=== PATIENT | male | born 1945 | race Caucasian/White ===

== ENCOUNTER 2016-10-28 10:02 | Outpatient (CLI) | payer MEDICARE ==
[2016-10-28 12:45] LABS: Hemoglobin A1c 8.1 % (4.0-6.0)
== END 2016-10-28 10:03 | disposition home or self-care (01) ==
LOC: NAVSJIPCSP 10:02
PROVIDERS: ATTEND Internal Medicine
DX: E78.5 Hyperlipidemia, unspecified (principal); E11.51 Type 2 diabetes mellitus with diabetic peripheral angiopathy without gangrene
CPT/HCPCS: 36415; 80061; 83036

== ENCOUNTER 2017-02-04 09:25 | Outpatient (CLI) | payer MEDICARE ==
[2017-02-04 12:36] LABS: Hemoglobin A1c 7.9 % (4.0-6.0)
[2017-02-04 12:47] LABS: Cardiac Risk 3.8 (Less than 4.5)
[2017-02-04 14:14] LABS: PSA-Asymptomatic (SCREENING) 4.45 ng/mL (0-4.0)
[2017-02-05 18:18] LABS: Hep C IgG Ab Non-Reactive (NonReactive); Hep C Index 0.18 S/CO (0-0.79)
== END 2017-02-04 09:26 | disposition home or self-care (01) ==
LOC: NAVSJIPCSP 09:25
PROVIDERS: ATTEND Internal Medicine
DX: Z12.5 Encounter for screening for malignant neoplasm of prostate (principal); E11.51 Type 2 diabetes mellitus with diabetic peripheral angiopathy without gangrene; E78.5 Hyperlipidemia, unspecified; Z79.899 Other long term (current) drug therapy; Z72.89 Other problems related to lifestyle
CPT/HCPCS: 36415; 80061; 83036; 86803; G0103

== ENCOUNTER 2017-03-05 10:31 | Outpatient (CLI) | payer MEDICARE ==
[2017-03-05 12:47] LABS: Blood, Urine Large (Negative); Clarity Cloudy (Clear); Glucose, Urine (Dipstick) 250 mg/dL (Negative); Leukocyte Negative (Negative); Protein, Urine (Dipstick) > or equal to 300 mg/dL (Neg-Trace); Specific Gravity, Urine 1.025 (1.005-1.030); pH, Urine 5.5 (5.0-9.0)
[2017-03-05 12:49] LABS: Bilirubin Negative (Negative); Icto Negative (Negative); Nitrite Negative (Negative)
[2017-03-05 13:28] LABS: Bacteria/HPF Rare-Few HPF (None Seen); RBC/HPF GREATER THAN 50-TNTC HPF (0-3); Squamous Epithelial 0-3 HPF (0-3)
== END 2017-03-05 10:32 | disposition home or self-care (01) ==
LOC: NAVSJIPCSP 10:31
PROVIDERS: ATTEND Internal Medicine
DX: R31.9 Hematuria, unspecified (principal)
CPT/HCPCS: 81003; 81015; 87086

== ENCOUNTER 2017-03-30 09:42 | Outpatient (CLI) | payer MEDICARE ==
[2017-03-30 13:33] LABS: Bilirubin Negative (Negative); Blood, Urine Negative (Negative); Clarity Clear (Clear); Glucose, Urine (Dipstick) >=1000 mg/dL (Negative); Leukocyte Negative (Negative); Nitrite Negative (Negative); Protein, Urine (Dipstick) Negative (Neg-Trace); Specific Gravity, Urine 1.025 (1.005-1.030); Urobilinogen 0.2 mg/dL (0.2-1.0)
[2017-03-30 13:59] LABS: RBC/HPF None Seen HPF (0-3); Squamous Epithelial 0-3 HPF (0-3); WBC/HPF 0-3 HPF (0-3)
[2017-03-30 14:00] LABS: Bacteria/HPF None Seen HPF (None Seen)
== END 2017-03-30 09:43 ==
LOC: NAVSJIPCSP 09:42
PROVIDERS: ATTEND Urology
DX: R31.0 Gross hematuria (principal)
CPT/HCPCS: 36415; 81001; 87086

== ENCOUNTER 2019-10-24 16:12 | Outpatient (CLI) | payer MEDICARE ==
--- NOTE | 2019-10-24 16:28 | RAD ---
Right shoulder 3 views HISTORY: Right shoulder pain. FINDINGS: Acromioclavicular and glenohumeral alignment are maintained. Mild osteophytosis. Downslopin g of the acromion. No acute fracture, dislocation, or aggressive osseous erosions. IMPRESSION: Mild osteoarthritic changes right shoulder.
== END 2019-10-24 16:13 | disposition home or self-care (01) ==
LOC: NAV RAD 16:12
PROVIDERS: ATTEND Internal Medicine
DX: S40.011A Contusion of right shoulder, initial encounter (principal); M19.011 Primary osteoarthritis, right shoulder

== ENCOUNTER 2020-02-01 12:51 | Emergency (ER) | payer MEDICARE ==
--- NOTE | 2020-02-01 14:14 | RAD ---
Exam:4 views right knee HISTORY: Pain. COMPARISON: None FINDINGS: Moderate atherosclerosis. No fracture, cortical irregularity or periosteal reaction. Preser joann joint spaces. No joint effusion. IMPRESSION: No acute abnormality.
== END 2020-02-01 14:40 | disposition home or self-care (01) ==
LOC: NAV ERS 12:51
DX: S83.401A Sprain of unspecified collateral ligament of right knee, initial encounter (principal); I11.0 Hypertensive heart disease with heart failure; I50.9 Heart failure, unspecified; E78.5 Hyperlipidemia, unspecified; E78.00 Pure hypercholesterolemia, unspecified; Z79.82 Long term (current) use of aspirin; Z79.899 Other long term (current) drug therapy; W22.8XXA Striking against or struck by other objects, initial encounter

== ENCOUNTER 2020-04-05 15:37 | Inpatient (IN) | payer MEDICARE, OTHER ==
[2020-04-05 16:24] VITALS: BMI 26.9
[2020-04-05] MEDS ORDERED: Nitroglycerin 0.4 MG TAB (25 Tab Bottle) SL PRN (17:03)
[2020-04-05] MEDS ORDERED: Dextrose 50% Abboject 50 ML SYRINGE SLOW IVP PRN (17:07)
[2020-04-05] MEDS ORDERED: METHYLPREDNISOLONE 4 MG PO SCH (17:15)
--- NOTE | 2020-04-05 18:04 | HP ---
CHIEF COMPLAINT: Pneumonia and deconditioning for therapy. BRIEF HISTORY: This is a very pleasant 75-year-old male, who is well known to me, was exposed to COVID as his tested positive. He presented to the hospital with a 1-week history of cough and fever of 101.6. He had two tests on March 22 and on March 26, which were negative. He was admitted to the hospital and diagnosed with community-acquired pneumonia. He was treated with IV antibiotics and steroids. He responded well to the above treatment. He apparently was taken off his oxygen this morning, but currently he is on 1 L. He is weak. He denies any PND or orthopnea. He denies any fever or chills. His cough has pretty much resolved. PAST MEDICAL HISTORY: 1. Coronary artery disease. 2. Aortic stenosis, status post valve replacement. 3. Diabetes mellitus type 2. 4. Hypertension. 5. Dyslipidemia. 6. BPH. 7. Restless legs syndrome. 8. Peripheral neuropathy. PAST SURGICAL HISTORY: 1. Coronary artery bypass grafting. 2. Stent placement. 3. Cholecystectomy. MEDICATIONS: He has been transferred here on the following medications; 1. Tylenol 650 p.o. q.4 p.r.n. 2. Vitamin C 1000 mg daily. 3. Plavix 75 mg daily. 4. Finasteride 5 mg daily. 5. Lasix 20 mg daily. 6. Gabapentin 600 mg in the morning and noon, and 1200 mg at bedtime. 7. Amaryl 2 mg b.i.d. 8. Levaquin 750 mg daily. 9. Methylprednisolone Dosepak 4 mg. 10. Sublingual nitroglycerin q.5 minutes p.r.n. chest pain. 11. Pramipexole 0.25 mg b.i.d. 12. Rosuvastatin 10 mg daily. 13. Entresto , one tablet daily. 14. Zinc 220 mg daily. ALLERGIES: NO KNOWN DRUG ALLERGIES. FAMILY HISTORY: Noncontributory to current admission. PSYCHOSOCIAL HISTORY: Former smoker. Denies any recreational or IV drug abuse. Active and independent. REVIEW OF SYSTEMS: CARDIOVASCULAR: Denies any chest pain. Improving shortness of breath. Denies any PND or orthopnea. Denies any palpitations. RESPIRATORY: Improving cough. Denies any expectoration. Denies any pleuritic-type chest pain. Denies any hemoptysis. GASTROINTESTINAL: Denies any nausea, vomiting, diarrhea, constipation, hematemesis, melena, or hematochezia. GENITOURINARY: Denies any frequency, urgency, dysuria, or hematuria. CENTRAL NERVOUS SYSTEM: Denies any focal numbness, weakness, or fainting spells. He does have chronic peripheral neuropathy. EXTREMITIES: Occasional arthralgia. SKIN: Denies any rash. HEENT: Denies any difficulty with speech, vision, or swallowing. PSYCHIATRIC: Denies any issues with depression or anxiety. PHYSICAL EXAMINATION: GENERAL: A pleasant 75-year-old male, resting comfortably in bed and denies any concerns. VITAL SIGNS: He is afebrile. Heart rate 73, respirations 18, oxygen saturation 94% on room air, blood pressure 116/57. HEENT: Normocephalic and atraumatic. Pupils are equally reacting to light and accommodation. Extraocular muscles are intact. NECK: No JVD, thyromegaly, cervical lymphadenopathy, or throat exudates. No carotid bruits. CARDIOVASCULAR: S1 and S2 plus. Rate and rhythm regular. RESPIRATORY: Normal vesicular breath sounds heard in all lung zavala. ABDOMEN: Soft, nontender. Bowel sounds heard in all quadrants. EXTREMITIES: Without cyanosis or clubbing. CENTRAL NERVOUS SYSTEM: Generalized weakness. IMPRESSION: 1. Resolving pneumonitis, likely community-acquired. 2. Coronary artery disease. 3. Diabetes mellitus type 2. 4. Hypertension. 5. Dyslipidemia. 6. BPH. 7. Restless legs syndrome. 8. Peripheral neuropathy. PLAN: 1. Continue current medications. 2. 1800 calorie heart healthy ADA diet. 3. Accu-Cheks with sliding scale coverage. 4. DVT prophylaxis with PlexiPulses. 5. Decubitus precautions. 6. Stress ulcer prophylaxis. 7. PT/OT eval and treat. 8. Recheck CBC, BMP in the morning. 9. Monitor respiratory status and titrate oxygen as tolerated. 10. Discussed with the patient in detail. All questions answered. 11. Estimated length of stay, 7 to 10 days. Job ID: [id number]
[2020-04-05] MEDS: Sacubitril 49 MG/Valsartan 51 MG TABLET PO SCH (20:22)
[2020-04-05] MEDS: Pramipexole Di-HCl 0.25 MG TAB PO SCH (20:23)
[2020-04-05] MEDS: Gabapentin 400 MG CAP PO SCH (20:23)
[2020-04-05] MEDS: Rosuvastatin 10 MG TAB PO SCH (20:23)
[2020-04-06 05:54] LABS: Hemoglobin 14.5 g/dL (14.0-18.0); Manual Diff?? YES; Mean Corpuscular HGB CONC 31.6 g/dL (32.0-36.0); Mean Corpuscular Hemoglobin 29.9 pg (27.0-31.0); Mean Corpuscular Volume 94.7 fL (78.0-98.0); Mean Platelet Volume 8.9 fL (7.4-10.4); Platelet Count 126 thou/uL (130-400); RBC Distribution Width 12.6 % (11.5-14.5); Red Blood Cell (RBC) Count 4.84 mill/uL (4.70-6.10); White Blood Cell (WBC) Count 5.1 thou/uL (4.8-10.8)
[2020-04-06 05:55] LABS: Band 7 % (5-11); Lymphocytes 16 % (21-51); MDiff Complete? YES; Monocytes 4 % (0-10); Neutrophil 70 % (42-75)
[2020-04-06 05:56] LABS: Reactive Lymphocytes 3 % (0-10)
[2020-04-06 06:24] LABS: ALT (SGPT) 35 U/L (8-55); AST (SGOT) 35 U/L (5-34); Albumin 2.9 g/dL (3.4-4.8); Alkaline Phosphatase 35 U/L (40-110); Anion Gap 15 mmol/L (10-20); BUN (Urea Nitrogen) 15 mg/dL (8.4-25.7); Bilirubin, Total 0.7 mg/dL (0.2-1.2); Calc. Creatinine Clearance 116 mL/min (70-130); Calcium 7.8 mg/dL (7.8-10.44); Carbon Dioxide 26 mmol/L (23-31); Chloride 98 mmol/L (98-107); Estimated GFR-MDRD Greater than 90; Globulin 2.6 g/dL (2.4-3.5); Glucose 113 mg/dL (83-110); Potassium 3.8 mmol/L (3.5-5.1); Protein, Total 5.5 g/dL (5.8-8.1); Sodium 135 mmol/L (136-145)
[2020-04-06] MEDS: Gabapentin 300 MG CAP PO SCH (08:08)
[2020-04-06] MEDS: Finasteride 5 MG TAB PO SCH (08:08)
[2020-04-06] MEDS: Furosemide 20 MG TAB PO SCH (08:08)
[2020-04-06] MEDS: Zinc Sulfate 220 MG CAP PO SCH (08:08)
[2020-04-06] MEDS: Glimepiride 2 MG TAB PO SCH ×2 (08:08→16:19)
[2020-04-06] MEDS: Clopidogrel Bisulfate 75 MG TAB PO SCH (08:08)
[2020-04-06] MEDS: Pramipexole Di-HCl 0.25 MG TAB PO SCH ×2 (08:09→21:12)
[2020-04-06] MEDS: Sacubitril 49 MG/Valsartan 51 MG TABLET PO SCH ×2 (08:09→21:12)
[2020-04-06] MEDS: Ascorbic Acid 500 mg Chewable Tablet PO SCH (08:09)
[2020-04-06] MEDS: methylPREDNISolone 4 mg Tablet PO SCH ×3 (12:17→21:12)
[2020-04-06] MEDS: HumaLOG 300 UNITS/3 ML VIAL SC PRN ×2 (17:45→21:15)
[2020-04-06] MEDS: Rosuvastatin 10 MG TAB PO SCH (21:12)
[2020-04-06] MEDS: Gabapentin 400 MG CAP PO SCH (21:12)
[2020-04-07] MEDS: HumaLOG 300 UNITS/3 ML VIAL SC PRN ×3 (05:21→21:07)
[2020-04-07] MEDS: Clopidogrel Bisulfate 75 MG TAB PO SCH (08:09)
[2020-04-07] MEDS: Pramipexole Di-HCl 0.25 MG TAB PO SCH ×2 (08:09→21:02)
[2020-04-07] MEDS: Zinc Sulfate 220 MG CAP PO SCH (08:09)
[2020-04-07] MEDS: Furosemide 20 MG TAB PO SCH (08:09)
[2020-04-07] MEDS: Sacubitril 49 MG/Valsartan 51 MG TABLET PO SCH ×2 (08:09→21:04)
[2020-04-07] MEDS: Ascorbic Acid 500 mg Chewable Tablet PO SCH (08:09)
[2020-04-07] MEDS: Gabapentin 300 MG CAP PO SCH (08:09)
[2020-04-07] MEDS: Glimepiride 2 MG TAB PO SCH ×2 (08:10→17:03)
[2020-04-07] MEDS: methylPREDNISolone 4 mg Tablet PO SCH ×3 (08:10→17:04)
[2020-04-07] MEDS: Finasteride 5 MG TAB PO SCH (08:10)
[2020-04-07] MEDS ORDERED: methylPREDNISolone 4 mg Tablet PO SCH (21:00)
[2020-04-07] MEDS: Gabapentin 400 MG CAP PO SCH (21:02)
[2020-04-07] MEDS: Rosuvastatin 10 MG TAB PO SCH (21:04)
[2020-04-08] MEDS: Sacubitril 49 MG/Valsartan 51 MG TABLET PO SCH ×2 (08:13→21:03)
[2020-04-08] MEDS: Ascorbic Acid 500 mg Chewable Tablet PO SCH (08:13)
[2020-04-08] MEDS: Clopidogrel Bisulfate 75 MG TAB PO SCH (08:13)
[2020-04-08] MEDS: Gabapentin 300 MG CAP PO SCH (08:13)
[2020-04-08] MEDS: Zinc Sulfate 220 MG CAP PO SCH (08:13)
[2020-04-08] MEDS: Furosemide 20 MG TAB PO SCH (08:14)
[2020-04-08] MEDS: Glimepiride 2 MG TAB PO SCH ×2 (08:14→17:15)
[2020-04-08] MEDS: Finasteride 5 MG TAB PO SCH (08:14)
[2020-04-08] MEDS: Pramipexole Di-HCl 0.25 MG TAB PO SCH ×2 (08:14→21:03)
[2020-04-08] MEDS: methylPREDNISolone 4 mg Tablet PO SCH ×4 (08:15→21:04)
[2020-04-08] MEDS: HumaLOG 300 UNITS/3 ML VIAL SC PRN ×3 (12:05→21:07)
--- NOTE | 2020-04-08 17:32 | PRG ---
DATE OF SERVICE: 04/07/[address] Tamia Lainez. SUBJECTIVE: The patient is sitting up in bed, eating his supper, feels well with no cough or fever. He has had recent diagnosis of COVID negative, community-acquired pneumonia treated with IV antibiotics, steroids with great improvement. He states now that he feels much better than he did and is willing to talk about therapy and discharge soon. OBJECTIVE: VITAL SIGNS: His blood pressure is 144/72, temperature is 97, pulse 63, respirations 19, O2 sats 93% on room air. LUNGS: Clear. CARDIAC: Regular rhythm. ABDOMEN: Soft and nontender. SKIN/EXTREMITIES: Display no edema, clubbing, or cyanosis. ASSESSMENT: 1. Resolving community-acquired pneumonia. 2. Stable coronary artery disease, asymptomatic. 3. Stable type 2 diabetes. 4. Stable hypertension. PLAN: Continue PT/OT next week. Continue prehospitalization medications including oral Levaquin and Medrol Dosepak. Job ID: [id number]
--- NOTE | 2020-04-08 17:36 | PRG ---
DATE OF SERVICE: 04/08/[address] Tamia Lainez. SUBJECTIVE: The patient feels well. No cough, shortness of breath, chest pain. Good appetite, increasing strength, and ready for therapy tomorrow. He is compliant with his oral Levaquin. His Accu-Cheks have been well controlled running from 106 to 170. OBJECTIVE: LUNGS: Clear. CARDIAC: Showed regular rhythm. ABDOMEN: Soft and nontender. SKIN/EXTREMITIES: Show no edema. ASSESSMENT: 1. Resolving community-acquired pneumonia. 2. Stable type 2 diabetes. 3. Stable coronary artery disease asymptomatic. 4. Improving deconditioning. PLAN: PT, OT tomorrow. Continue home medications. Dr. Epps will be back tonight to discuss discharge plans with the patient. Job ID: [id number]
[2020-04-08] MEDS: Gabapentin 400 MG CAP PO SCH (21:03)
[2020-04-08] MEDS: Rosuvastatin 10 MG TAB PO SCH (21:03)
[2020-04-09] MEDS: Clopidogrel Bisulfate 75 MG TAB PO SCH (08:00)
[2020-04-09] MEDS: Zinc Sulfate 220 MG CAP PO SCH (08:00)
[2020-04-09] MEDS: Gabapentin 300 MG CAP PO SCH (08:00)
[2020-04-09] MEDS: Sacubitril 49 MG/Valsartan 51 MG TABLET PO SCH (08:01)
[2020-04-09] MEDS: Ascorbic Acid 500 mg Chewable Tablet PO SCH (08:01)
[2020-04-09] MEDS: methylPREDNISolone 4 mg Tablet PO SCH ×2 (08:03→11:41)
[2020-04-09] MEDS: Glimepiride 2 MG TAB PO SCH (08:03)
[2020-04-09] MEDS: Pramipexole Di-HCl 0.25 MG TAB PO SCH (08:04)
[2020-04-09] MEDS: Furosemide 20 MG TAB PO SCH (08:04)
[2020-04-09] MEDS: Finasteride 5 MG TAB PO SCH (08:04)
[2020-04-09] MEDS: HumaLOG 300 UNITS/3 ML VIAL SC PRN (11:42)
[2020-04-09 14:44] VITALS: BP 148/62; TEMP 98.2
--- NOTE | 2020-04-09 19:26 | DIS ---
DATE OF ADMISSION: 04/05/2020 DATE OF DISCHARGE: 04/09/2020 PRINCIPAL DIAGNOSIS: Resolving community-acquired pneumonia. SECONDARY DIAGNOSES: 1. Coronary artery disease. 2. Diabetes mellitus, type 2. 3. Hypertension. 4. Dyslipidemia. 5. BPH. 6. Restless legs syndrome. 7. Peripheral neuropathy. 8. Improving deconditioning. COMPLICATIONS: None. ADVERSE REACTIONS: None. PROCEDURES: None. CONSULTATIONS: None except Physical Therapy and Occupational Therapy. HOSPITAL COURSE: The patient was admitted to [facility] with COVID exposure and shortness of breath, but he tested negative. He was diagnosed with community-acquired pneumonia. He was treated with IV antibiotics and steroids. He improved and was switched to oral medications and was transferred here for therapy. Even on arrival, he was on room air, and he was doing well. He worked with therapy over the weekend and was doing well, but this morning, he stated that he was doing well enough and he refused to participate with any further therapy. He is currently ambulating close to 450 feet without any assistance. Discussed with nursing and nursing feel that he is safe to go home. I spoke with his son and informed him and he is going to take care of his father at home. Mr. Coleman also refuses home health to come by and check on him, but I advised him that if he changes his mind, I can always arrange it from the office. He just needs a prescription for Levaquin for 2 more days and he should be done with his , he is already on the last 2 days. He also wants the lancets, which I am going to send all of them to [facility]. PHYSICAL EXAMINATION: VITAL SIGNS: On the day of discharge, the patient is afebrile, heart rate 62, respirations 19, oxygen saturation 96% on room air, blood pressure 145/68. CARDIOVASCULAR: S1 and S2 plus. RESPIRATORY: Normal vesicular breath sounds. ABDOMEN: Soft, nontender. Bowel sounds heard in all quadrants. EXTREMITIES: Without cyanosis or clubbing. CENTRAL NERVOUS SYSTEM: Peripheral neuropathy, otherwise nonfocal. DISCHARGE MEDICATIONS: 1. Vitamin C 1000 mg daily. 2. Plavix 75 mg daily. 3. Proscar 5 mg daily. 4. Lasix 20 mg daily. 5. Gabapentin 600 mg in the morning, 600 noon, and 1200 at bedtime. 6. Amaryl 2 mg b.i.d. 7. Levaquin 750 mg daily for two more days. 8. Mirapex 0.25 mg b.i.d. 9. Crestor 10 mg daily. 10. Entresto 49/51 half a tablet b.i.d. 11. Zinc sulfate 220 mg daily. DISCHARGE INSTRUCTIONS: Heart healthy 1800 calorie ADA diet. Activity as tolerated. The patient is to follow up in my office in 2 to 4 weeks. He is to call with any questions or concerns. I spoke with the patient and his son, Juan Subramanian in detail and all questions answered. Job ID: [id number]
[2020-04-10] MEDS ORDERED: methylPREDNISolone 4 mg Tablet PO SCH (08:00)
[2020-04-11] MEDS ORDERED: methylPREDNISolone 4 mg Tablet PO SCH (08:00)
== END 2020-04-09 14:15 | disposition home or self-care (01) | DRG 195 ==
LOC: NAV ACUTE 15:37
PROVIDERS: ADMIT Internal Medicine; ATTEND Internal Medicine
DX: J18.9 Pneumonia, unspecified organism (principal); I25.10 Atherosclerotic heart disease of native coronary artery without angina pectoris; I10 Essential (primary) hypertension; N40.0 Benign prostatic hyperplasia without lower urinary tract symptoms; G25.81 Restless legs syndrome; R53.81 Other malaise; E11.42 Type 2 diabetes mellitus with diabetic polyneuropathy; Z79.4 Long term (current) use of insulin; Z95.1 Presence of aortocoronary bypass graft; Z95.5 Presence of coronary angioplasty implant and graft; Z90.49 Acquired absence of other specified parts of digestive tract
CPT/HCPCS: 36416; 80053; 85025; J7509

== ENCOUNTER 2020-06-11 09:10 | Emergency (ER) | payer MEDICARE, OTHER ==
[2020-06-11 09:51] LABS: #Basophils 0.1 thou/uL (0.0-0.2); #Eosinphils 0.1 thou/uL (0.0-0.7); #Lymphocytes 1.2 thou/uL (1.20-3.40); #Monocytes 0.7 thou/uL (0.11-0.59); #Neutrophils 5.7 thou/uL (1.40-6.50); %Basophils 0.9 % (0.0-1.0); %Eosinophils 1.7 % (0.0-10.0); %Lymphocytes 15.4 % (21.0-51.0); %Monocytes 8.8 % (0.0-10.0); %Neutrophils 73.2 % (42.0-75.0); Hemoglobin 15.6 g/dL (14.0-18.0); Mean Corpuscular HGB CONC 31.2 g/dL (32.0-36.0); Mean Corpuscular Hemoglobin 30.9 pg (27.0-31.0); Mean Corpuscular Volume 98.9 fL (78.0-98.0); Mean Platelet Volume 6.7 fL (7.4-10.4); Platelet Count 131 thou/uL (130-400); RBC Distribution Width 14.2 % (11.5-14.5); Red Blood Cell (RBC) Count 5.07 mill/uL (4.70-6.10); White Blood Cell (WBC) Count 7.8 thou/uL (4.8-10.8)
[2020-06-11] MEDS ORDERED: cefTRIAXone\\ROCEPHIN 1 GM VIAL ONE (10:02)
[2020-06-11] MEDS ORDERED: Sodium Chloride 0.9% 250 ML 250 ML ONE (10:02)
[2020-06-11 10:05] LABS: ALT (SGPT) 16 U/L (8-55); AST (SGOT) 17 U/L (5-34); Albumin 4.1 g/dL (3.4-4.8); Alkaline Phosphatase 50 U/L (40-110); Anion Gap 13 mmol/L (10-20); BUN (Urea Nitrogen) 22 mg/dL (8.4-25.7); Calc. Creatinine Clearance 0 mL/min (70-130); Calcium 9.2 mg/dL (7.8-10.44); Carbon Dioxide 25 mmol/L (23-31); Chloride 101 mmol/L (98-107); Estimated GFR-MDRD 86; Globulin 3.3 g/dL (2.4-3.5); Glucose 153 mg/dL (83-110); Potassium 4.4 mmol/L (3.5-5.1); Protein, Total 7.4 g/dL (5.8-8.1); Sodium 135 mmol/L (136-145)
--- NOTE | 2020-06-11 10:21 | RAD ---
LEFT TIBIA AND FIBULA 2 VIEWS: Date: 06/11/2020 HISTORY: Infection. FINDINGS: Scattered surgical clips in the soft tissues of the lower leg. Minimal vascular calcifications. No ac [place] fracture or dislocation or bony erosive or destructive changes. IMPRESSION: 1. No fracture, dislocation, or other acute process. 2. Postsurgical clips. 3. Arteriovascular calcifications. 4. Scattered anterior soft tissue swelling over the pretibial region. POS: RRE
== END 2020-06-11 11:31 | disposition short-term general hospital (02) ==
LOC: NAV ERS 09:10
DX: L03.116 Cellulitis of left lower limb (principal); I73.9 Peripheral vascular disease, unspecified; I11.0 Hypertensive heart disease with heart failure; I50.9 Heart failure, unspecified; E78.5 Hyperlipidemia, unspecified; E78.00 Pure hypercholesterolemia, unspecified; R73.03 Prediabetes; Z79.82 Long term (current) use of aspirin; Z79.84 Long term (current) use of oral hypoglycemic drugs; Z79.899 Other long term (current) drug therapy
CPT/HCPCS: 80053; 83605; 85025; 87040; J0696; J3370; J7050

== ENCOUNTER 2020-10-07 10:20 | Emergency (ER) | payer MEDICARE ==
[2020-10-07] MEDS ORDERED: Sodium Chloride 0.9% 1,000 ML ONE (11:00)
[2020-10-07] MEDS ORDERED: Ondansetron PF 4 MG/2 ML Vial ONE (11:00)
[2020-10-07 11:13] LABS: #Basophils 0.1 thou/uL (0.0-0.2); #Lymphocytes 1.3 thou/uL (1.20-3.40); #Monocytes 0.5 thou/uL (0.11-0.59); #Neutrophils 3.2 thou/uL (1.40-6.50); %Basophils 1.4 % (0.0-1.0); %Eosinophils 0.3 % (0.0-10.0); %Lymphocytes 24.8 % (21.0-51.0); %Monocytes 10.5 % (0.0-10.0); Hemoglobin 11.7 g/dL (14.0-18.0); Mean Corpuscular HGB CONC 27.8 g/dL (32.0-36.0); Mean Corpuscular Hemoglobin 21.8 pg (27.0-31.0); Mean Corpuscular Volume 78.6 fL (78.0-98.0); Mean Platelet Volume 8.4 fL (7.4-10.4); Platelet Count 128 thou/uL (130-400); RBC Distribution Width 18.7 % (11.5-14.5); Red Blood Cell (RBC) Count 5.36 mill/uL (4.70-6.10); White Blood Cell (WBC) Count 5.1 thou/uL (4.8-10.8)
--- NOTE | 2020-10-07 11:16 | RAD ---
EXAM: Chest one view: HISTORY: Nausea and vomiting COMPARISON: 03/30/2020 FINDINGS: Heart size: Prominent cardiomegaly worse from prior exam. Lungs: Developing bilateral vascular congestion and interstitial edema. No significant pleural effusion or pneumothorax. IMPRESSION: Developing cardiomegaly, vascular congestion, and probably some degree of congestive heart failure wi thout confluent pneumonia.
[2020-10-07 11:28] LABS: ALT (SGPT) 116 U/L (8-55); AST (SGOT) 53 U/L (5-34); Albumin 3.5 g/dL (3.4-4.8); Alkaline Phosphatase 97 U/L (40-110); Anion Gap 20 mmol/L (10-20); BUN (Urea Nitrogen) 22 mg/dL (8.4-25.7); Bilirubin, Total 2.9 mg/dL (0.2-1.2); Calc. Creatinine Clearance 0 mL/min (70-130); Calcium 8.5 mg/dL (7.8-10.44); Carbon Dioxide 21 mmol/L (23-31); Chloride 104 mmol/L (98-107); Glucose 158 mg/dL (83-110); Potassium 4.6 mmol/L (3.5-5.1); Protein, Total 6.5 g/dL (5.8-8.1); Sodium 140 mmol/L (136-145)
[2020-10-07 11:35] LABS: Lipase 20 U/L (8-78); Magnesium 2.1 mg/dL (1.6-2.6)
[2020-10-07] MEDS ORDERED: Sodium Chloride 0.9% 100 ML ONE (11:51)
[2020-10-07] MEDS ORDERED: Cefepime 2 GM VIAL ONE (11:51)
[2020-10-07 11:52] LABS: CKMB 3.8 ng/mL (0-6.6)
--- NOTE | 2020-10-07 12:43 | CT ---
CT ABDOMEN NONCONTRAST CT PELVIS NONCONTRAST: (Urolithiasis protocol) DATE: 10/07/2020 HISTORY: 75-year-old male with nausea and vomiting COMPARISON: CT angiogram of 06/11/2020 TECHNIQUE: IV injection of iodinated contrast media: None Oral contrast media: None FINDINGS: Other than for urolithiasis, the lack of IV and oral contrast limits the evaluation. Multilevel severe degenerative disc disease and high-grade facet DJD, with multilevel severe central spinal canal stenosis and severe neural foraminal stenosis. New bilateral pleural effusions, small to moderate on right and small on the left. New free intraperitoneal fluid, with small right perihepatic, moderate perisplenic, bilateral paracol ic gutters, and moderate volume in pelvic inlet, and moderate volume and presacral space. New edema circumferentially throughout the subcutaneous fat Heavily calcified prostate gland. Heavy atherosclerotic calcification without aneurysm, of abdominal aorta, bilateral common, internal, and external iliac arteries, origin of SMA, and origins of bilateral renal arteries, with high-grade stenoses as described on prior report. Tiny calcific densities in the kidneys represent atherosclerosis of branches of bilateral renal arter ies. This makes it difficult to evaluate for actual nephrolithiasis. No definite nephrolithiasis, ureterolithiasis, or vesicolithiasis identified. No hydronephrosis. Diffuse mild mural thickening of urinary bladder. No small bowel dilation or pneumoperitoneum. Large number of diverticula throughout the descending and sigmoid colon. The presence of adjacent free fluid makes it difficult to evaluate for acute diverticulitis. No abscess. Normal appendix. No small bowel dilation. Within the limitations of a noncontrast scan, no obvious major pathology identified involving spleen, pancreas, liver, or adrenals.. IMPRESSION: 1) small-moderate volume of ascites. 2) bilateral pleural effusions. 3) anasarca 4) no urolithiasis or obstructive uropathy; and no small bowel obstruction. 5) severe atherosclerosis of abdominal aorta and all of its major branches. 6) heavily calcified prostate gland 7) Severe lumbar spondylosis.
[2020-10-07] MEDS ORDERED: Sodium Chloride 0.9% 500 ML ONE (12:59)
[2020-10-07] MEDS ORDERED: Aspirin Chewable 81 MG TAB ONE (13:12)
[2020-10-07 14:56] LABS: Lactic Acid 3.2 mmol/L (0.5-2.2)
== END 2020-10-07 14:46 | disposition short-term general hospital (02) ==
LOC: NAV ERS 10:20
DX: E86.0 Dehydration (principal); R18.8 Other ascites; I11.0 Hypertensive heart disease with heart failure; I50.9 Heart failure, unspecified; J90 Pleural effusion, not elsewhere classified; R74.02 Elevation of levels of lactic acid dehydrogenase [LDH]; R79.89 Other specified abnormal findings of blood chemistry; R73.03 Prediabetes; E78.5 Hyperlipidemia, unspecified; E78.00 Pure hypercholesterolemia, unspecified; Z79.899 Other long term (current) drug therapy; Z79.82 Long term (current) use of aspirin
CPT/HCPCS: 71045; 74176; 80053; 82553; 83605; 83690; 83735; 83880; 84484; 85025; 87040; 93005; 94760; 96365; 96367; 96375; J0692; J2405; J3370; J3490; J7030; J7050